=== PATIENT | male | born 1980 | race Caucasian/White ===

== ENCOUNTER 2016-09-19 17:17 | Emergency (ER) | payer MEDICARE, OTHER ==
--- NOTE | 2016-09-19 17:48 | ED ---
General Adult HPI - General Chief complaint: Extremity Injury, Upper Stated complaint: RT WRIST PAIN Time Seen by Provider: 09/19/16 17:37 Source: patient, RN notes reviewed Mode of arrival: ambulatory Limitations: no limitations - History of Present Illness Initial comments: This is a 36-year-old male presents with right wrist pain that started 3 days ago with no known injury. Patient states he noticed the pain when he went to crack his right wrist. Patient denies working with his hands or excessive typing. Patient states the only thing he lifts is his 1-year-old daughter. Patient states he gets a tingling to the medial aspect of the right wrist on the volar side that shoots up the third digit. Patient also complains of pain to the thenar region. Patient admits to marijuana use and tobacco use but denies any alcohol use. Patient denies any recent fever, chills, shortness breath, chest pain, abdominal pain, nausea/vomiting/diarrhea, back pain, hematuria, headache, or visual changes, or any other complaints. - Related Data Home Medications Medication Instructions Recorded Confirmed Loratadine [Claritin] 10 mg PO HS 02/18/14 07/08/16 Omeprazole [PriLOSEC] 20 mg PO DAILY 02/18/14 07/08/16 Topiramate [Topamax] 50 mg PO BID 02/18/14 07/08/16 Hydrocodone/Acetaminophen [[place] 1 tab PO Q4H PRN 07/03/14 07/08/16 10-325] Baclofen [Lioresal] 10 mg PO BID 05/16/16 07/08/16 Butalb/APAP/Caff 50-325-40Mg 1 tab PO DAILY PRN 05/16/16 07/08/16 [Fioricet 50-325-40] Fluticasone/Salmeterol [Advair 1 puff INHALATION RT-BID PRN 05/16/16 07/08/16 250-50 Diskus] Gabapentin 600 mg PO TID 05/16/16 07/08/16 PARoxetine HCL [Paxil] 40 mg PO HS 05/16/16 07/08/16 Previous Rx's Medication Instructions Recorded Ibuprofen [Motrin] 800 mg PO Q6HR PRN #20 tab 04/03/14 Hydrocortisone Cream 1 applic TOPICAL TID PRN #1 tube 12/07/15 [Hydrocortisone 2.5% Cream] Allergies Allergy/AdvReac Type Severity Reaction Status Date / Time No Known Allergies Allergy Verified 09/19/16 17:28 Review of Systems ROS Statement: Those systems with pertinent positive or pertinent negative responses have been documented in the HPI. ROS Other: All systems not noted in ROS Statement are negative. Past Medical History Past Medical History: GERD/Reflux, Musculoskeletal Disorder Additional Past Medical History / Comment(s): Migraine, stomach ulcer, hernia, back pain, depression History of Any Multi-Drug Resistant Organisms: MRSA Date of last positivie culture/infection: 1999/right forearm MDRO Source:: tatoo Past Surgical History: Hernia Repair, Orthopedic Surgery, Tonsillectomy Additional Past Surgical History / Comment(s): C2-C4 FRACTURE WITH REPLACEMENT AT C3 2012 Past Psychological History: Anxiety, Depression Smoking Status: Current every day smoker Past Alcohol Use History: Rare Past Drug Use History: Marijuana General Exam - General Exam Comments Initial Comments: General: The patient is awake and alert, in no distress, and does not appear acutely ill. Neck: The neck is supple, there is no tenderness or JVD. Cardiovascular: There is a regular rate and rhythm. No murmur, rub or gallop is appreciated. Respiratory: Lungs are clear to auscultation, respirations are non-labored, breath sounds are equal. No wheezes, stridor, rales, or rhonchi. Musculoskeletal: Patient has tenderness to the medial aspect of the right wrist on the volar side. There is no erythema, swelling or ecchymosis. No thenar hypertrophy. Some discomfort with tinnel's sign. There is some tenderness to palpation in the right thenar region. Patient has full range of motion, strength 5/5 and Sensation intact. Radial pulses 2+ bilaterally. Capillary refill is normal at less than 2 seconds. Neurological: A&O x 3. CN II-XII intact, There are no obvious motor or sensory deficits. Coordination appears grossly intact. Speech is normal. Skin: Skin is warm and dry and no rashes or lesions are noted. Psychiatric: Normal mood and affect. Limitations: no limitations Course Vital Signs 09/19/16 09/19/16 17:25 18:39 Temperature 98.7 F 97.9 F Pulse Rate 94 75 Respiratory 16 18 Rate Blood Pressure 133/73 100/61 O2 Sat by Pulse 100 99 Oximetry Medical Decision Making - Medical Decision Making This is a 36-year-old male with right wrist pain is no known injury. On physical exam patient has tenderness to the medial aspect of the right wrist on the volar side. There is no erythema, swelling or ecchymosis. No thenar hypertrophy. Some discomfort with tinnel's sign. There is some tenderness to palpation in the right thenar region. Patient has full range of motion, strength 5/5 and Sensation intact. Radial pulses 2+ bilaterally. Capillary refill is normal at less than 2 seconds. During exam patient complained of some shooting pain to the right third digit. An x-ray of the right wrist was done and reviewed showing: There is no acute fracture or dislocation in the right wrist. Unremarkable study. Report read by Dr. Hayse. I discussed carpal tunnel and tendinitis with the patient. I discussed that patient should purchase a wrist brace for immobilization at night and during the day while working around the house. I discussed range of motion to the patient's right wrist. I also discussed ice, elevation and an Joshua wrap. I discussed Tylenol and Motrin for pain and swelling. I discussed return parameters.Discussed that patient should follow up with PCP in one to 2 days or return to the [facility] for any worsening symptoms or any further concerns. Patient was receptive to this plan patient was discharged home. I discussed this case with attending physician Dr. Jeffrey who agrees with plan as stated above. Disposition Clinical Impression: Tendinitis, Carpal tunnel syndrome Disposition: HOME SELF-CARE Condition: Good Instructions: Tendinitis (ED) Additional Instructions: Please use a wrist brace for immobilization of the right wrist at night. Please use ice, elevation and an Joshua wrap to the right wrist as needed during the day. Please use Tylenol and Motrin for pain and swelling. Please follow- up through primary care physician in one to 2 days or return to the [facility] for any worsening symptoms or for any further concerns. Referrals: Anirudh Singletary MD [Primary Care Provider] - 1-2 days Time of Disposition: 18:33
--- NOTE | 2016-09-19 18:14 | XR ---
EXAMINATION TYPE: XR wrist complete RT DATE OF EXAM: 09/19/2016 6:07 PM CLINICAL HISTORY: Right wrist pain for 4 days. TECHNIQUE: Frontal, lateral, scaphoid, and oblique images of the right wrist are obtained. COMPARISON: None FINDINGS: There is no acute fracture/dislocation evident in the right wrist. The joint spaces in th e right wrist appear within normal limits. The overlying soft tissue appears unremarkable. IMPRESSION: There is no acute fracture or dislocation in the right wrist. Unremarkable study.
[2016-09-19 18:40] VITALS: BP 100/61; PULSE 75; RESP 18; TEMP 97.9
== END 2016-09-19 18:39 | disposition home or self-care (01) ==
LOC: EC 17:17
DX: G56.01 Carpal tunnel syndrome, right upper limb (principal); M77.9 Enthesopathy, unspecified; K21.9 Gastro-esophageal reflux disease without esophagitis; F41.9 Anxiety disorder, unspecified; F32.9 Major depressive disorder, single episode, unspecified; M79.9 Soft tissue disorder, unspecified; F17.200 Nicotine dependence, unspecified, uncomplicated; Z79.899 Other long term (current) drug therapy; Z87.19 Personal history of other diseases of the digestive system
CPT/HCPCS: 99283

== ENCOUNTER 2017-01-12 02:07 | Emergency (ER) | payer MEDICARE, OTHER ==
[2017-01-12 02:12] VITALS: RESP 18
[2017-01-12] MEDS ORDERED: SODIUM CHLORIDE 0.9% 1,000 ML IV ONE (02:30)
[2017-01-12] MEDS ORDERED: diphenhydrAMINE 50 MG/ML 1 ML VIAL IVP STA (02:30)
[2017-01-12] MEDS ORDERED: KETOROLAC 30 MG/ML 1 ML VIAL IVP STA (02:30)
[2017-01-12] MEDS ORDERED: METOCLOPRAMIDE 5 MG/ML 2 ML VIAL IVP STA (02:30)
--- NOTE | 2017-01-12 02:33 | ED ---
Headache HPI - General Chief Complaint: Headache Stated Complaint: Headache Time Seen by Provider: 01/12/17 02:26 Source: RN notes reviewed Mode of arrival: ambulatory Limitations: no limitations - History of Present Illness Initial Comments: Patient is a 36-year-old male presents to the emergency room for evaluation of migraine headache. Patient states he has a history of migraine headaches. Patient states he usually takes Topamax daily and Fioricet as needed for acute onset. Patient states his migraine began a day and a half ago. Patient states that the Fioricet is not helping him. Patient states he is having 8 out of 10 constant headache. Patient states this feels like his normal migraines. Patient states he is nauseous but denies vomiting. Patient denies neck pain, fevers or chills. Patient denies paresthesias. - Related Data Home Medications Medication Instructions Recorded Confirmed Loratadine [Claritin] 10 mg PO HS 02/18/14 01/12/17 Omeprazole [PriLOSEC] 20 mg PO DAILY 02/18/14 01/12/17 Topiramate [Topamax] 50 mg PO BID 02/18/14 01/12/17 Hydrocodone/Acetaminophen [[place] 1 tab PO Q4H PRN 07/03/14 01/12/17 10-325] Baclofen [Lioresal] 10 mg PO BID 05/16/16 01/12/17 Butalb/APAP/Caff 50-325-40Mg 1 tab PO DAILY PRN 05/16/16 01/12/17 [Fioricet 50-325-40] Fluticasone/Salmeterol [Advair 1 puff INHALATION RT-BID PRN 05/16/16 01/12/17 250-50 Diskus] Gabapentin 600 mg PO TID 05/16/16 01/12/17 PARoxetine HCL [Paxil] 40 mg PO HS 05/16/16 01/12/17 Previous Rx's Medication Instructions Recorded Ibuprofen [Motrin] 800 mg PO Q6HR PRN #20 tab 04/03/14 Hydrocortisone Cream 1 applic TOPICAL TID PRN #1 tube 12/07/15 [Hydrocortisone 2.5% Cream] Allergies Allergy/AdvReac Type Severity Reaction Status Date / Time No Known Allergies Allergy Verified 01/12/17 02:12 Review of Systems ROS Statement: Those systems with pertinent positive or pertinent negative responses have been documented in the HPI. ROS Other: All systems not noted in ROS Statement are negative. Past Medical History Past Medical History: GERD/Reflux, Musculoskeletal Disorder Additional Past Medical History / Comment(s): Migraine, stomach ulcer, hernia, back pain, depression History of Any Multi-Drug Resistant Organisms: MRSA Date of last positivie culture/infection: 1999/right forearm MDRO Source:: tatoo Past Surgical History: Hernia Repair, Orthopedic Surgery, Tonsillectomy Additional Past Surgical History / Comment(s): C2-C4 FRACTURE WITH REPLACEMENT AT C3 2012 Past Psychological History: Anxiety, Depression Smoking Status: Current every day smoker Past Alcohol Use History: Rare Past Drug Use History: Marijuana General Exam - General Exam Comments Initial Comments: pacing exam room, uncomfortable secondary to headache, no acute distress. Limitations: no limitations General appearance: alert, in no apparent distress Head exam: Present: atraumatic, normocephalic, normal inspection Eye exam: Present: normal appearance, PERRL, EOMI Pupils: Present: normal accommodation ENT exam: Present: normal exam, mucous membranes moist Neck exam: Present: normal inspection, full ROM. Absent: tenderness, lymphadenopathy Respiratory exam: Present: normal lung sounds bilaterally. Absent: respiratory distress Cardiovascular Exam: Present: regular rate, normal rhythm, normal heart sounds Extremities exam: Present: normal inspection Back exam: Present: normal inspection Neurological exam: Present: alert, oriented X3, CN II-XII intact, normal gait Expanded Patient oriented to: Present: person, place, time Speech: Present: fluid speech Sensory exam: Upper Extremity Light Touch: Normal, Lower Extremity Light Touch: Normal Psychiatric exam: Present: normal affect, normal mood Skin exam: Present: warm, dry, intact, normal color. Absent: rash Course Vital Signs 01/12/17 01/12/17 02:09 03:22 Temperature 97 F L 98.2 F Pulse Rate 58 L 78 Respiratory 18 18 Rate Blood Pressure 181/97 142/70 O2 Sat by Pulse 100 98 Oximetry Medical Decision Making - Medical Decision Making Patient is a 36-year-old male presents to the emergency room for evaluation of migraine headache. Patient has a history of migraine headaches. Patient was given medications and states he is feeling a lot better and would like to be discharged home. Return parameters discussed. Disposition Clinical Impression: Migraine Disposition: HOME SELF-CARE Condition: Good Instructions: Acute Headache (ED) Additional Instructions: Continue taking at home prescribed migraine medications as needed. Please follow up with primary care provider in 1-2 days. If any new symptom arises or symptoms worsen, return to ER as soon as possible. Referrals: Anirudh Singletary MD [Primary Care Provider] - 1-2 days Time of Disposition: 03:15
[2017-01-12 03:23] VITALS: BP 142/70; PULSE 78; TEMP 98.2
== END 2017-01-12 03:22 | disposition home or self-care (01) ==
LOC: EC 02:07
DX: G43.909 Migraine, unspecified, not intractable, without status migrainosus (principal); K21.9 Gastro-esophageal reflux disease without esophagitis; F32.9 Major depressive disorder, single episode, unspecified; F41.9 Anxiety disorder, unspecified; M62.9 Disorder of muscle, unspecified; F17.200 Nicotine dependence, unspecified, uncomplicated; Z79.899 Other long term (current) drug therapy
CPT/HCPCS: 99283; 96374; 96375 ×2; 96361; J1200; J2765; J1885

== ENCOUNTER 2017-01-16 19:46 | Emergency (ER) | payer MEDICARE, OTHER ==
[2017-01-16 19:54] VITALS: RESP 18
[2017-01-16] MEDS ORDERED: diphenhydrAMINE 50 MG/ML 1 ML VIAL IM STA (20:30)
[2017-01-16] MEDS ORDERED: KETOROLAC 60 MG/2 ML VIAL IM STA (20:30)
[2017-01-16] MEDS ORDERED: HYDROmorphone 1 MG/ML 1 ML SYRINGE IM STA (20:30)
--- NOTE | 2017-01-16 20:32 | ED ---
Back Pain HPI - General Chief Complaint: Back Pain/Injury Stated Complaint: Back Pain Time Seen by Provider: 01/16/17 20:17 Source: patient, RN notes reviewed Limitations: no limitations - History of Present Illness Initial Comments: 36-year-old male present emergency Department chief complaint of chronic back pain, migraine. Patient states he has recurrent migraines and does see a neurologist she's had injections. Patient was given chronic pain meds right his PCP Dr. Benedict. Patient denies any new injuries. He states that occasionally just has a flareup of the pain. Patient states that he has recurrent headaches states that he comes emergency department for medication. He was here recently and states he does feel better patient states that he has nausea no vomiting denies any blurred vision patient is a focal weakness. Patient states this feels like his normal migraine headache. Patient denies any other complaints at this time. Patient denies any bowel bladder incontinence. Patient states he does has low back pain no abdominal pain. - Related Data Home Medications Medication Instructions Recorded Confirmed Loratadine [Claritin] 10 mg PO HS 02/18/14 01/12/17 Omeprazole [PriLOSEC] 20 mg PO DAILY 02/18/14 01/12/17 Topiramate [Topamax] 50 mg PO BID 02/18/14 01/12/17 Hydrocodone/Acetaminophen [[place] 1 tab PO Q4H PRN 07/03/14 01/12/17 10-325] Baclofen [Lioresal] 10 mg PO BID 05/16/16 01/12/17 Butalb/APAP/Caff 50-325-40Mg 1 tab PO DAILY PRN 05/16/16 01/12/17 [Fioricet 50-325-40] Fluticasone/Salmeterol [Advair 1 puff INHALATION RT-BID PRN 05/16/16 01/12/17 250-50 Diskus] Gabapentin 600 mg PO TID 05/16/16 01/12/17 PARoxetine HCL [Paxil] 40 mg PO HS 05/16/16 01/12/17 Previous Rx's Medication Instructions Recorded Ibuprofen [Motrin] 800 mg PO Q6HR PRN #20 tab 04/03/14 Hydrocortisone Cream 1 applic TOPICAL TID PRN #1 tube 12/07/15 [Hydrocortisone 2.5% Cream] Allergies Allergy/AdvReac Type Severity Reaction Status Date / Time No Known Allergies Allergy Verified 01/16/17 19:54 Review of Systems ROS Statement: Those systems with pertinent positive or pertinent negative responses have been documented in the HPI. ROS Other: All systems not noted in ROS Statement are negative. Past Medical History Past Medical History: GERD/Reflux, Musculoskeletal Disorder Additional Past Medical History / Comment(s): Migraine, stomach ulcer, hernia, back pain, depression, chronic falls r/t pt "back giving out" History of Any Multi-Drug Resistant Organisms: MRSA Date of last positivie culture/infection: 1999/right forearm MDRO Source:: tatoo Past Surgical History: Hernia Repair, Orthopedic Surgery, Tonsillectomy Additional Past Surgical History / Comment(s): C2-C4 FRACTURE WITH REPLACEMENT AT C3 2012 Past Psychological History: Anxiety, Depression Smoking Status: Current every day smoker Past Alcohol Use History: Rare Past Drug Use History: Marijuana General Exam Limitations: no limitations General appearance: alert, in no apparent distress Head exam: Present: atraumatic, normocephalic, normal inspection Eye exam: Present: normal appearance, PERRL, EOMI. Absent: scleral icterus, conjunctival injection, periorbital swelling ENT exam: Present: mucous membranes moist. Absent: normal oropharynx ( Edentulous) Neck exam: Present: normal inspection, full ROM. Absent: tenderness, meningismus, lymphadenopathy Respiratory exam: Present: normal lung sounds bilaterally. Absent: respiratory distress, wheezes, rales, rhonchi, stridor Cardiovascular Exam: Present: regular rate, normal rhythm, normal heart sounds. Absent: systolic murmur, diastolic murmur, rubs, gallop, clicks GI/Abdominal exam: Present: soft, normal bowel sounds. Absent: distended, tenderness, guarding, rebound, rigid Back exam: Present: full ROM, tenderness (Mild diffuse lumbar tenderness), paraspinal tenderness. Absent: vertebral tenderness Neurological exam: Present: alert, oriented X3, CN II-XII intact, reflexes normal. Absent: motor sensory deficit Skin exam: Present: warm, dry, intact, normal color. Absent: rash Course Vital Signs 01/16/17 19:50 Temperature 97.0 F L Pulse Rate 81 Respiratory 18 Rate Blood Pressure 131/78 O2 Sat by Pulse 100 Oximetry Medical Decision Making - Medical Decision Making Patient has chronic back pain, chronic migraines. Patient given injection of pain medication here. Patient will be discharged. He has no neurological deficits. This is typical pain. Patient agrees to plan return parameters were discussed. Disposition Clinical Impression: Migraine, Chronic back pain Disposition: HOME SELF-CARE Condition: Stable Instructions: Migraine Headache (ED), Chronic Back Pain (ED) Additional Instructions: Please return to the Emergency Department if symptoms worsen or any other concerns. Referrals: Anirudh Singletary MD [Primary Care Provider] - 1-2 days Time of Disposition: 20:31
[2017-01-16 20:51] VITALS: BP 133/75; PULSE 90; TEMP 97.5
== END 2017-01-16 20:51 | disposition home or self-care (01) ==
LOC: EC 19:46
DX: G43.909 Migraine, unspecified, not intractable, without status migrainosus (principal); M54.9 Dorsalgia, unspecified; G89.29 Other chronic pain; K21.9 Gastro-esophageal reflux disease without esophagitis; F32.9 Major depressive disorder, single episode, unspecified; F17.200 Nicotine dependence, unspecified, uncomplicated; Z79.899 Other long term (current) drug therapy
CPT/HCPCS: 99283; 96372 ×3; J1200; J1885; J1170

== ENCOUNTER 2017-03-13 05:00 | Emergency (ER) | payer MEDICARE, OTHER ==
[2017-03-13] MEDS ORDERED: SODIUM CHLORIDE 0.9% 1,000 ML IV STA ×2 (05:30)
[2017-03-13] MEDS ORDERED: diphenhydrAMINE 50 MG/ML 1 ML VIAL IVP STA (05:30)
[2017-03-13] MEDS ORDERED: KETOROLAC 30 MG/ML 1 ML VIAL IVP STA (05:30)
[2017-03-13] MEDS ORDERED: METOCLOPRAMIDE 5 MG/ML 2 ML VIAL IVP STA (05:30)
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
[2017-03-13 06:41] VITALS: BP 110/59; PULSE 61; RESP 18; TEMP 97.5
== END 2017-03-13 06:40 | disposition home or self-care (01) ==
LOC: EC 05:00
DX: G43.909 Migraine, unspecified, not intractable, without status migrainosus (principal); K21.9 Gastro-esophageal reflux disease without esophagitis; F32.9 Major depressive disorder, single episode, unspecified; F41.9 Anxiety disorder, unspecified; F17.200 Nicotine dependence, unspecified, uncomplicated; Z79.899 Other long term (current) drug therapy
CPT/HCPCS: 99283; 96374; 96375 ×2; 96361; J1200; J2765; J1885

== ENCOUNTER → 2017-05-31 | Outpatient (CLI) | payer MEDICARE, OTHER ==
--- NOTE | 2017-05-31 11:31 | CT ---
EXAMINATION TYPE: CT cervical spine wo con DATE OF EXAM: 05/31/2017 COMPARISON: 02/18/2014. HISTORY: Cervical radicular pain CT DLP: 309.6 mGycm CONTRAST: None CT of the cervical spine is performed in the axial plane at 2 mm thick sections. Reconstructed image s in the coronal, and sagittal plane are reviewed on the computer. There is an anterior cervical fusion present C2-C4. Disc vertebral body spacer is present. No acute fractures are evident. Vertebral body alignment is normal. There is diffuse loss of disc height through the remaining disc levels, greater at C6-7. Vertebral body heights are preserved. No spinal canal stenosis is evident No neural foraminal stenosis is evident. Minimal endplate changes may be present C6-7 with anterior thecal sac contact. No spinal canal stenos is or neural foraminal stenosis present at this level. IMPRESSIONS: 1. Postsurgical changes, stable from 2013. 2. Degenerative disc changes C6-7. 3. No suspicious changes to account for right arm numbness.
== END | disposition home or self-care (01) ==
LOC: RADCTMAIN 07:22
PROVIDERS: ATTEND Neurological Surgery
DX: M50.123 Cervical disc disorder at C6-C7 level with radiculopathy (principal); Z98.1 Arthrodesis status
CPT/HCPCS: 72125

== ENCOUNTER 2017-07-18 03:31 | Emergency (ER) | payer MEDICARE, OTHER ==
[2017-07-18] MEDS ORDERED: KETOROLAC 30 MG/ML 1 ML VIAL IVP STA (03:47)
[2017-07-18] MEDS ORDERED: diphenhydrAMINE 50 MG/ML 1 ML VIAL IVP STA (03:47)
[2017-07-18] MEDS ORDERED: METOCLOPRAMIDE 5 MG/ML 2 ML VIAL IVP STA (03:47)
--- NOTE | 2017-07-18 04:44 | ED ---
Headache HPI - General Chief Complaint: Headache Stated Complaint: migraine Time Seen by Provider: 07/18/17 03:47 Mode of arrival: ambulatory Limitations: no limitations - History of Present Illness MD Complaint: "migraine" -: hour(s) Onset Description: gradual Location: occipital Severity: severe Quality: constant, similar to previous headaches Consistency: constant Improves With: nothing Worsens With: light Context: occurred at rest Associated Symptoms: nausea, vomiting Treatments Prior to Arrival: prescription analgesic - Related Data Home Medications Medication Instructions Recorded Confirmed Loratadine [Claritin] 10 mg PO HS 02/18/14 01/12/17 Omeprazole [PriLOSEC] 20 mg PO DAILY 02/18/14 01/12/17 Topiramate [Topamax] 50 mg PO BID 02/18/14 01/12/17 Hydrocodone/Acetaminophen [[place] 1 tab PO Q4H PRN 07/03/14 01/12/17 10-325] Baclofen [Lioresal] 10 mg PO BID 05/16/16 01/12/17 Butalb/APAP/Caff 50-325-40Mg 1 tab PO DAILY PRN 05/16/16 01/12/17 [Fioricet 50-325-40] Fluticasone/Salmeterol [Advair 1 puff INHALATION RT-BID PRN 05/16/16 01/12/17 250-50 Diskus] Gabapentin 600 mg PO TID 05/16/16 01/12/17 PARoxetine HCL [Paxil] 40 mg PO HS 05/16/16 01/12/17 Previous Rx's Medication Instructions Recorded Ibuprofen [Motrin] 800 mg PO Q6HR PRN #20 tab 04/03/14 Hydrocortisone Cream 1 applic TOPICAL TID PRN #1 tube 12/07/15 [Hydrocortisone 2.5% Cream] Allergies Allergy/AdvReac Type Severity Reaction Status Date / Time No Known Allergies Allergy Verified 07/18/17 03:38 Review of Systems ROS Statement: Those systems with pertinent positive or pertinent negative responses have been documented in the HPI. ROS Other: All systems not noted in ROS Statement are negative. Constitutional: Denies: fever, chills, weakness Eyes: Denies: eye pain, vision change Respiratory: Denies: cough, dyspnea Cardiovascular: Denies: chest pain, syncope Gastrointestinal: Reports: nausea, vomiting. Denies: abdominal pain Musculoskeletal: Denies: back pain Skin: Denies: rash Neurological: Reports: headache. Denies: weakness, numbness, paresthesias, confusion, abnormal gait, vertigo Past Medical History Past Medical History: GERD/Reflux, Musculoskeletal Disorder Additional Past Medical History / Comment(s): Migraine, stomach ulcer, hernia, back pain, depression, chronic falls r/t pt "back giving out" History of Any Multi-Drug Resistant Organisms: MRSA Date of last positivie culture/infection: 1999/right forearm MDRO Source:: tatoo Past Surgical History: Hernia Repair, Orthopedic Surgery, Tonsillectomy Additional Past Surgical History / Comment(s): C2-C4 FRACTURE WITH REPLACEMENT AT C3 2012 Past Psychological History: Anxiety, Depression Smoking Status: Current every day smoker Past Alcohol Use History: None Reported Past Drug Use History: Marijuana General Exam Limitations: no limitations General appearance: alert, in no apparent distress Head exam: Present: atraumatic, normocephalic Eye exam: Present: normal appearance. Absent: scleral icterus, conjunctival injection ENT exam: Present: normal oropharynx Neck exam: Present: normal inspection, full ROM. Absent: meningismus Neurological exam: Present: alert, oriented X3, CN II-XII intact, normal gait, reflexes normal. Absent: motor sensory deficit Skin exam: Present: warm, dry, intact, normal color. Absent: rash Course Vital Signs 07/18/17 03:33 Temperature 96.9 F L Pulse Rate 70 Respiratory 17 Rate Blood Pressure 118/71 Disposition Clinical Impression: Headache Disposition: HOME SELF-CARE Condition: Fair Instructions: Acute Headache (ED) Referrals: Anirudh Singletary MD [Primary Care Provider] - 1-2 days
[2017-07-18 05:01] VITALS: BP 106/55; PULSE 87; RESP 18; TEMP 97
== END 2017-07-18 05:01 | disposition home or self-care (01) ==
LOC: EC 03:31
DX: R51 Headache (principal); R11.2 Nausea with vomiting, unspecified; K21.9 Gastro-esophageal reflux disease without esophagitis; F32.9 Major depressive disorder, single episode, unspecified; F41.9 Anxiety disorder, unspecified; F17.200 Nicotine dependence, unspecified, uncomplicated; Z86.14 Personal history of Methicillin resistant Staphylococcus aureus infection; Z86.69 Personal history of other diseases of the nervous system and sense organs; Z79.899 Other long term (current) drug therapy
CPT/HCPCS: 99283; 96374; 96375 ×2; J1200; J2765; J1885

== ENCOUNTER 2017-10-09 04:41 | Emergency (ER) | payer MEDICARE, OTHER ==
[2017-10-09 04:47] VITALS: BP 137/89; PULSE 52; RESP 18; TEMP 97.8
[2017-10-09] MEDS ORDERED: METOCLOPRAMIDE 5 MG/ML 2 ML VIAL IVP STA (05:07)
[2017-10-09] MEDS ORDERED: diphenhydrAMINE 50 MG/ML 1 ML VIAL IVP STA (05:07)
[2017-10-09] MEDS ORDERED: KETOROLAC 30 MG/ML 1 ML VIAL IVP STA (05:07)
--- NOTE | 2017-10-09 05:14 | ED ---
Headache HPI - General Chief Complaint: Headache Stated Complaint: MIGRAINE Time Seen by Provider: 10/09/17 04:56 Mode of arrival: ambulatory Limitations: no limitations - History of Present Illness MD Complaint: "migraine" Onset/Timin -: days(s) Onset Description: gradual Location: right, left, temporal Severity: severe Quality: aching Consistency: constant Improves With: nothing Worsens With: light, noise Context: occurred at rest Associated Symptoms: photophobia, sensitivity to sound Treatments Prior to Arrival: migraine medication (Topamax and Fioricet) - Related Data Home Medications Medication Instructions Recorded Confirmed Loratadine [Claritin] 10 mg PO HS 02/18/14 01/12/17 Omeprazole [PriLOSEC] 20 mg PO DAILY 02/18/14 01/12/17 Topiramate [Topamax] 50 mg PO BID 02/18/14 01/12/17 Hydrocodone/Acetaminophen [[place] 1 tab PO Q4H PRN 07/03/14 01/12/17 10-325] Baclofen [Lioresal] 10 mg PO BID 05/16/16 01/12/17 Butalb/APAP/Caff 50-325-40Mg 1 tab PO DAILY PRN 05/16/16 01/12/17 [Fioricet 50-325-40] Fluticasone/Salmeterol [Advair 1 puff INHALATION RT-BID PRN 05/16/16 01/12/17 250-50 Diskus] Gabapentin 600 mg PO TID 05/16/16 01/12/17 PARoxetine HCL [Paxil] 40 mg PO HS 05/16/16 01/12/17 Previous Rx's Medication Instructions Recorded Ibuprofen [Motrin] 800 mg PO Q6HR PRN #20 tab 04/03/14 Hydrocortisone Cream 1 applic TOPICAL TID PRN #1 tube 12/07/15 [Hydrocortisone 2.5% Cream] Allergies Allergy/AdvReac Type Severity Reaction Status Date / Time No Known Allergies Allergy Verified 10/09/17 04:47 Review of Systems ROS Statement: Those systems with pertinent positive or pertinent negative responses have been documented in the HPI. ROS Other: All systems not noted in ROS Statement are negative. Constitutional: Denies: fever, chills, weakness Eyes: Denies: eye pain, vision change ENT: Denies: ear pain, hearing loss Respiratory: Denies: cough Cardiovascular: Denies: chest pain Gastrointestinal: Denies: abdominal pain, vomiting Neurological: Reports: headache. Denies: weakness, numbness, paresthesias, confusion Past Medical History Past Medical History: GERD/Reflux, Musculoskeletal Disorder Additional Past Medical History / Comment(s): Migraine, stomach ulcer, hernia, back pain, depression, chronic falls r/t pt "back giving out" History of Any Multi-Drug Resistant Organisms: MRSA Date of last positivie culture/infection: 1999/right forearm MDRO Source:: tatoo Past Surgical History: Hernia Repair, Orthopedic Surgery, Tonsillectomy Additional Past Surgical History / Comment(s): C2-C4 FRACTURE WITH REPLACEMENT AT C3 2012 Past Psychological History: Anxiety, Depression Smoking Status: Current every day smoker Past Alcohol Use History: None Reported Past Drug Use History: Marijuana General Exam Limitations: no limitations General appearance: alert, in no apparent distress Head exam: Present: atraumatic, normocephalic Eye exam: Present: normal appearance. Absent: scleral icterus, conjunctival injection ENT exam: Present: mucous membranes dry Neck exam: Present: normal inspection, full ROM. Absent: meningismus Neurological exam: Present: alert, oriented X3, CN II-XII intact, normal gait. Absent: motor sensory deficit Skin exam: Present: warm, dry, intact, normal color. Absent: rash Course Vital Signs 10/09/17 04:45 Temperature 97.8 F Pulse Rate 52 L Respiratory 18 Rate Blood Pressure 137/89 O2 Sat by Pulse 100 Oximetry Disposition Clinical Impression: Headache Disposition: HOME SELF-CARE Condition: Good Instructions: Acute Headache (ED) Referrals: Anirudh Singletary MD [Primary Care Provider] - 1-2 days
== END 2017-10-09 06:05 | disposition home or self-care (01) ==
LOC: EC 04:41
DX: R51 Headache (principal); K21.9 Gastro-esophageal reflux disease without esophagitis; F32.9 Major depressive disorder, single episode, unspecified; F41.9 Anxiety disorder, unspecified; F17.200 Nicotine dependence, unspecified, uncomplicated; Z86.14 Personal history of Methicillin resistant Staphylococcus aureus infection; Z86.69 Personal history of other diseases of the nervous system and sense organs; Z79.899 Other long term (current) drug therapy
CPT/HCPCS: 99283; 96374; 96375 ×2; J1200; J2765; J1885

== ENCOUNTER 2017-12-08 23:36 | Emergency (ER) | payer MEDICARE, OTHER ==
[2017-12-08 23:50] VITALS: RESP 18
[2017-12-09] MEDS ORDERED: METOCLOPRAMIDE 5 MG/ML 2 ML VIAL IVP STA (00:08)
[2017-12-09] MEDS ORDERED: KETOROLAC 30 MG/ML 1 ML VIAL IVP STA (00:08)
[2017-12-09] MEDS ORDERED: diphenhydrAMINE 50 MG/ML 1 ML VIAL IVP STA (00:08)
--- NOTE | 2017-12-09 01:16 | ED ---
Headache HPI - General Chief Complaint: Headache Stated Complaint: Migraine Time Seen by Provider: 12/08/17 23:58 Mode of arrival: ambulatory Limitations: no limitations - History of Present Illness Initial Comments: 37-year-old male patient presents to the emergency department today for evaluation of migraine headache. Patient states that he has a history of migraines does take Topamax and Fioricet for this. Patient states that this particular headache started approximately 3 days ago. States that his medications have not been working for him. States that he does have some sensitivity to light and sound. States that the pain is located all over his head however is worse at the base of the skull. He denies any blurred or double vision. Denies any dizziness or weakness. Denies any numbness or tingling. He has had nausea but no vomiting. States that his symptoms are consistent with his usual migraine pattern. Patient denies any recent rash, fever, chills, shortness breath, chest pain, abdominal pain, nausea, vomiting, diarrhea, constipation, back pain, hematuria, dysuria, urinary urgency, urinary frequency, or any other complaints. - Related Data Home Medications Medication Instructions Recorded Confirmed Loratadine [Claritin] 10 mg PO HS 02/18/14 01/12/17 Omeprazole [PriLOSEC] 20 mg PO DAILY 02/18/14 01/12/17 Topiramate [Topamax] 50 mg PO BID 02/18/14 01/12/17 Hydrocodone/Acetaminophen [[place] 1 tab PO Q4H PRN 07/03/14 01/12/17 10-325] Baclofen [Lioresal] 10 mg PO BID 05/16/16 01/12/17 Butalb/APAP/Caff 50-325-40Mg 1 tab PO DAILY PRN 05/16/16 01/12/17 [Fioricet 50-325-40] Fluticasone/Salmeterol [Advair 1 puff INHALATION RT-BID PRN 05/16/16 01/12/17 250-50 Diskus] Gabapentin 600 mg PO TID 05/16/16 01/12/17 PARoxetine HCL [Paxil] 40 mg PO HS 05/16/16 01/12/17 Previous Rx's Medication Instructions Recorded Ibuprofen [Motrin] 800 mg PO Q6HR PRN #20 tab 09/25/14 Hydrocortisone Cream 1 applic TOPICAL TID PRN #1 tube 12/07/15 [Hydrocortisone 2.5% Cream] Allergies Allergy/AdvReac Type Severity Reaction Status Date / Time No Known Allergies Allergy Verified 12/08/17 23:50 Review of Systems ROS Statement: Those systems with pertinent positive or pertinent negative responses have been documented in the HPI. ROS Other: All systems not noted in ROS Statement are negative. Past Medical History Past Medical History: GERD/Reflux, Musculoskeletal Disorder Additional Past Medical History / Comment(s): Migraine, stomach ulcer, hernia, back pain, depression, chronic falls r/t pt "back giving out", History of Any Multi-Drug Resistant Organisms: MRSA Date of last positivie culture/infection: 1999/right forearm MDRO Source:: tatoo Past Surgical History: Hernia Repair, Orthopedic Surgery, Tonsillectomy Additional Past Surgical History / Comment(s): C2-C4 FRACTURE WITH REPLACEMENT AT C3 2012, Past Psychological History: Anxiety, Depression Smoking Status: Current every day smoker Past Alcohol Use History: None Reported Past Drug Use History: Marijuana General Exam Limitations: no limitations General appearance: alert, in no apparent distress, other (This is a well- developed, well-nourished adult male patient in no acute distress. Vital signs upon presentation are temperature 98.2F, pulse 60, respirations 18, blood pressure 101/70, pulse ox 100% on room air.) Head exam: Present: atraumatic, normocephalic, normal inspection Eye exam: Present: normal appearance, PERRL, EOMI. Absent: scleral icterus, conjunctival injection, nystagmus, periorbital swelling ENT exam: Present: normal exam, normal oropharynx, mucous membranes moist Neck exam: Present: normal inspection, full ROM. Absent: tenderness, meningismus, lymphadenopathy Respiratory exam: Present: normal lung sounds bilaterally. Absent: respiratory distress, wheezes, rales, rhonchi, stridor Cardiovascular Exam: Present: regular rate, normal rhythm, normal heart sounds. Absent: systolic murmur, diastolic murmur, rubs, gallop, clicks Neurological exam: Present: alert, oriented X3, CN II-XII intact, other ( Strength in all 4 extremities is 5/5.) Psychiatric exam: Present: normal affect, normal mood Skin exam: Present: warm, dry, intact, normal color. Absent: rash Course Vital Signs 12/08/17 12/09/17 23:47 01:22 Temperature 98.2 F 97.6 F Pulse Rate 60 89 Respiratory 18 18 Rate Blood Pressure 101/70 104/68 O2 Sat by Pulse 100 99 Oximetry Medical Decision Making - Medical Decision Making 37-year-old male patient presents to the emergency department today for complaints of migraine headache. Physical examination is unremarkable. Patient is neurologically intact. Patient states the symptoms are consistent with his usual migraine pattern however his medications are not working. Patient was given IV Reglan, Benadryl, and Toradol. He is given IV fluids. Upon reevaluation patient states his pain is much improved. He is currently rating it a 4 out of 10 on the pain scale. Patient states he does feel comfortable being discharged home to follow-up. He is instructed to follow up with his PCP in 1-2 days. Return parameters were discussed in detail. He verbalizes understanding and agrees with this plan. Disposition Clinical Impression: Migraine Disposition: HOME SELF-CARE Condition: Good Instructions: Migraine Headache (ED) Additional Instructions: Continue home medications. Follow-up with your primary care physician for recheck in 1-2 days. Return here immediately for any new, worsening, or concerning symptoms. Is patient prescribed a controlled substance at d/c from ED?: No Referrals: Anirudh Singletary MD [Primary Care Provider] - 1-2 days Time of Disposition: 01:15
[2017-12-09 01:23] VITALS: BP 104/68; PULSE 89; TEMP 97.6
== END 2017-12-09 01:22 | disposition home or self-care (01) ==
LOC: EC 23:36
DX: G43.909 Migraine, unspecified, not intractable, without status migrainosus (principal); K21.9 Gastro-esophageal reflux disease without esophagitis; F32.9 Major depressive disorder, single episode, unspecified; F41.9 Anxiety disorder, unspecified; F17.200 Nicotine dependence, unspecified, uncomplicated; Z79.899 Other long term (current) drug therapy; Z86.14 Personal history of Methicillin resistant Staphylococcus aureus infection; Z87.39 Personal history of other diseases of the musculoskeletal system and connective tissue
CPT/HCPCS: 99283; 96374; 96375 ×2; J1200; J2765; J1885

== ENCOUNTER 2018-01-04 14:59 | Emergency (ER) | payer MEDICARE, OTHER ==
[2018-01-04 15:06] VITALS: BP 114/73; PULSE 89; RESP 18; TEMP 97.9
--- NOTE | 2018-01-04 15:22 | ED ---
General Adult HPI - General Chief complaint: Skin/Abscess/Foreign Body Stated complaint: skin problems Time Seen by Provider: 01/04/18 15:08 Source: patient, RN notes reviewed Mode of arrival: ambulatory Limitations: no limitations - History of Present Illness Initial comments: Patient 37-year-old male presented to the emergency room today with a chief complaint of rash and itching to the volar aspect of his forearms bilaterally. States only thing that he can think of is that it started after he had a haircut the other day and he fell asleep before he showered. Patient denies any other new contacts soap detergents. Patient dismissed very itchy she's been trying not to itch serious. States no one else at home has similar rash. He denies any other complaints or symptoms. Patient denies any recent fever, chills, shortness of breath, chest pain, back pain, abdominal pain, nausea or vomiting, numbness or tingling, headaches or visual changes, or any other complaints. - Related Data Home Medications Medication Instructions Recorded Confirmed Loratadine [Claritin] 10 mg PO HS 02/18/14 01/12/17 Omeprazole [PriLOSEC] 20 mg PO DAILY 02/18/14 01/12/17 Topiramate [Topamax] 50 mg PO BID 02/18/14 01/12/17 Hydrocodone/Acetaminophen [[place] 1 tab PO Q4H PRN 07/03/14 01/12/17 10-325] Butalb/APAP/Caff 50-325-40Mg 1 tab PO DAILY PRN 05/16/16 01/12/17 [Fioricet 50-325-40] Gabapentin 600 mg PO TID 05/16/16 01/12/17 PARoxetine HCL [Paxil] 40 mg PO HS 05/16/16 01/12/17 Previous Rx's Medication Instructions Recorded Ibuprofen [Motrin] 800 mg PO Q6HR PRN #20 tab 04/03/14 Famotidine [Pepcid] 20 mg PO BID #20 tablet 01/04/18 Hydrocortisone Cream 1 applic TOPICAL TID #1 cream..g. 01/04/18 [Hydrocortisone 1% Cream] diphenhydrAMINE [Benadryl] 1 - 2 tab PO Q6HR PRN #30 capsule 01/04/18 predniSONE 20 mg PO BID 5 Days tab 01/04/18 Allergies Allergy/AdvReac Type Severity Reaction Status Date / Time No Known Allergies Allergy Verified 01/04/18 15:06 Review of Systems ROS Statement: Those systems with pertinent positive or pertinent negative responses have been documented in the HPI. ROS Other: All systems not noted in ROS Statement are negative. Past Medical History Past Medical History: GERD/Reflux, Musculoskeletal Disorder Additional Past Medical History / Comment(s): Migraine, stomach ulcer, hernia, back pain, depression, chronic falls r/t pt "back giving out", History of Any Multi-Drug Resistant Organisms: MRSA Date of last positivie culture/infection: 1999/right forearm MDRO Source:: tatoo Past Surgical History: Hernia Repair, Orthopedic Surgery, Tonsillectomy Additional Past Surgical History / Comment(s): C2-C4 FRACTURE WITH REPLACEMENT AT C3 2012, Past Psychological History: Anxiety, Depression Smoking Status: Current every day smoker Past Alcohol Use History: None Reported Past Drug Use History: Marijuana General Exam - General Exam Comments Initial Comments: General: The patient is awake and alert, in no distress, and does not appear acutely ill. Eye: Pupils are equal, round and reactive to light, extra-ocular movements are intact. No nystagmus. There is normal conjunctiva bilaterally. No signs of icterus. Ears, nose, mouth and throat: There are moist mucous membranes and no oral lesions. Neck: The neck is supple, there is no tenderness or JVD. Musculoskeletal: Normal ROM, no tenderness. Strength 5/5. Sensation intact. Neurological: A&O x 3. CN II-XII intact, There are no obvious motor or sensory deficits. Coordination appears grossly intact. Speech is normal. Skin: Papular type rash to the volar aspect of the forearms bilaterally. Psychiatric: Cooperative, appropriate mood & affect, normal judgment. Limitations: no limitations Course Vital Signs 01/04/18 15:05 Temperature 97.9 F Pulse Rate 89 Respiratory 18 Rate Blood Pressure 114/73 O2 Sat by Pulse 99 Oximetry Medical Decision Making - Medical Decision Making Rash is localized to the forearm area. Normal smile also similar findings. Patient's use Benadryl little relief. Advised continue Benadryl at this time will also be given prescription for topical and oral steroids for a few days to see if it improves her symptoms. Advised follow-up return if symptoms increase or worsen or for transfer Disposition Clinical Impression: Contact dermatitis Disposition: HOME SELF-CARE Condition: Good Instructions: Dermatitis (ED) Additional Instructions: Please use medication as discussed. Please follow-up with family doctor in the next 2 days of symptoms have not improved. Please return to emergency room if the symptoms increase or worsen or for any other concerns. Prescriptions: diphenhydrAMINE [Benadryl] 1 - 2 tab PO Q6HR PRN #30 capsule PRN Reason: Allergic Reaction Famotidine [Pepcid] 20 mg PO BID #20 tablet Hydrocortisone Cream [Hydrocortisone 1% Cream] 1 applic TOPICAL TID #1 cream..g. predniSONE 20 mg PO BID 5 Days tab Is patient prescribed a controlled substance at d/c from ED?: No Referrals: Anirudh Singletary MD [Primary Care Provider] - 1-2 days Time of Disposition: 15:20
== END 2018-01-04 15:25 | disposition home or self-care (01) ==
LOC: EC 14:59
DX: L25.9 Unspecified contact dermatitis, unspecified cause (principal); K21.9 Gastro-esophageal reflux disease without esophagitis; F32.9 Major depressive disorder, single episode, unspecified; F41.9 Anxiety disorder, unspecified; F17.200 Nicotine dependence, unspecified, uncomplicated; Z86.14 Personal history of Methicillin resistant Staphylococcus aureus infection; Z79.899 Other long term (current) drug therapy
CPT/HCPCS: 99282

== ENCOUNTER 2018-01-15 00:47 | Emergency (ER) | payer MEDICARE, OTHER ==
[2018-01-15] MEDS ORDERED: diphenhydrAMINE 50 MG/ML 1 ML VIAL IVP STA (01:33)
[2018-01-15] MEDS ORDERED: METOCLOPRAMIDE 5 MG/ML 2 ML VIAL IVP STA (01:33)
[2018-01-15] MEDS ORDERED: SODIUM CHLORIDE 0.9% 1,000 ML IV STA (01:33)
[2018-01-15] MEDS ORDERED: KETOROLAC 30 MG/ML 1 ML VIAL IVP STA (01:33)
--- NOTE | 2018-01-15 02:07 | ED ---
Headache HPI - General Chief Complaint: Headache Stated Complaint: Migraine Time Seen by Provider: 01/15/18 01:27 Source: patient, RN notes reviewed Mode of arrival: ambulatory Limitations: no limitations - History of Present Illness Initial Comments: This is a 37-year-old male with history of migraine headaches who presents to the emergency department with chief complaint of migraine. Patient states that he developed a migraine yesterday. He states that he didn't have it under control for a couple of hours but then it returned. He states he takes Topamax daily. He states that he takes Fioricet when he has migraines. Patient is describes the migraine as throbbing. He states that it starts at the base of his head and wraps around to the temples. Patient states that this is similar to his previous episodes of migraine. He states that he is sensitive to light and sound. Patient denies any recent illnesses or infections. Denies fevers or chills, chest or shortness of breath, abdominal pain, vomiting. He does admit to associated nausea. Denies dizziness or vision changes. - Related Data Home Medications Medication Instructions Recorded Confirmed Loratadine [Claritin] 10 mg PO HS 02/18/14 01/04/18 Omeprazole [PriLOSEC] 20 mg PO DAILY 02/18/14 01/04/18 Topiramate [Topamax] 50 mg PO BID 02/18/14 01/04/18 Hydrocodone/Acetaminophen [[place] 1 tab PO Q4H PRN 07/03/14 01/04/18 10-325] Butalb/APAP/Caff 50-325-40Mg 1 tab PO DAILY PRN 05/16/16 01/04/18 [Fioricet 50-325-40] Gabapentin 600 mg PO TID 05/16/16 01/04/18 PARoxetine HCL [Paxil] 40 mg PO HS 05/16/16 01/04/18 Previous Rx's Medication Instructions Recorded Ibuprofen [Motrin] 800 mg PO Q6HR PRN #20 tab 04/03/14 Famotidine [Pepcid] 20 mg PO BID #20 tablet 01/04/18 Hydrocortisone Cream 1 applic TOPICAL TID #1 cream..g. 01/04/18 [Hydrocortisone 1% Cream] diphenhydrAMINE [Benadryl] 1 - 2 tab PO Q6HR PRN #30 capsule 01/04/18 predniSONE 20 mg PO BID 5 Days tab 01/04/18 Allergies Allergy/AdvReac Type Severity Reaction Status Date / Time No Known Allergies Allergy Verified 01/15/18 01:03 Review of Systems ROS Statement: Those systems with pertinent positive or pertinent negative responses have been documented in the HPI. ROS Other: All systems not noted in ROS Statement are negative. Past Medical History Past Medical History: GERD/Reflux, Musculoskeletal Disorder Additional Past Medical History / Comment(s): Migraine, stomach ulcer, hernia, back pain, depression, chronic falls r/t pt "back giving out", History of Any Multi-Drug Resistant Organisms: MRSA Date of last positivie culture/infection: 1999/right forearm MDRO Source:: tatoo Past Surgical History: Hernia Repair, Orthopedic Surgery, Tonsillectomy Additional Past Surgical History / Comment(s): C2-C4 FRACTURE WITH REPLACEMENT AT C3 2012, Past Psychological History: Anxiety, Depression Smoking Status: Current every day smoker Past Alcohol Use History: None Reported Past Drug Use History: Marijuana General Exam - General Exam Comments Initial Comments: General: Awake and alert, well-developed; in no apparent distress. Patient is hunched over covering his eyes. HEENT: Head atraumatic, normocephalic. Pupils are equal, round and reactive to light. Extraocular movements intact. Oropharynx moist without erythema or exudate. Neck: Supple. Normal ROM. Cardiovascular: Regular rate and rhythm. No murmurs, rubs or gallops. Chest symmetrical. Respiratory: Lungs clear to auscultation bilaterally. No wheezes, rales or rhonchi. Normal respiratory effort with no use of accessory muscles. Musculoskeletal: Normal ROM, no tenderness bilateral upper and lower extremities. Ambulating normally. Skin: [place], warm and dry without rashes or lesions. Neurological: Alert and oriented x3. CN II-XII grossly intact. Speech is fluent and answers are appropriate. No focal neuro deficits. Psychiatric: Normal mood and affect. No overt signs of depression or anxiety noted. Limitations: no limitations Course Vital Signs 01/15/18 01:00 Temperature 97.9 F Pulse Rate 59 L Respiratory 18 Rate Blood Pressure 132/86 O2 Sat by Pulse 100 Oximetry Medical Decision Making - Medical Decision Making This is a 37-year-old male with history of migraines who presents to the emergency department with chief complaint of acute migraine. Patient states that his current migraine feels like previous episodes. He states that he does take Topamax daily for preventative measure. He states that he has been unable to get this migraine under control since yesterday. Patient given headache cocktail and fluids while in the emergency department. Patient states that his migraine has improved and is ready to be discharged home. Vital signs are stable and he is in no acute distress. He will be discharged home at this time. Patient is in agreement and voices understanding. All questions answered. Disposition Clinical Impression: Migraine Disposition: HOME SELF-CARE Condition: Good Instructions: Acute Headache (ED), Migraine Headache (ED) Additional Instructions: Please follow up with primary care provider within 1-2 days. Return to emergency department if symptoms should worsen or any concerns arise. Is patient prescribed a controlled substance at d/c from ED?: No Referrals: Anirudh Singletary MD [Primary Care Provider] - 1-2 days Time of Disposition: 02:43
[2018-01-15 02:54] VITALS: BP 106/66; PULSE 57; RESP 16; TEMP 98.4
== END 2018-01-15 02:54 | disposition home or self-care (01) ==
LOC: EC 00:47
DX: G43.909 Migraine, unspecified, not intractable, without status migrainosus (principal); K21.9 Gastro-esophageal reflux disease without esophagitis; F32.9 Major depressive disorder, single episode, unspecified; F41.9 Anxiety disorder, unspecified; F17.200 Nicotine dependence, unspecified, uncomplicated; Z86.14 Personal history of Methicillin resistant Staphylococcus aureus infection; Z79.899 Other long term (current) drug therapy
CPT/HCPCS: 99283; 96374; 96375 ×2; 96361; J1200; J2765; J1885

== ENCOUNTER 2018-05-29 02:06 | Emergency (ER) | payer MEDICARE, OTHER ==
[2018-05-29 02:16] VITALS: TEMP 97.6
[2018-05-29] MEDS ORDERED: diphenhydrAMINE 50 MG CAP PO STA (02:32)
[2018-05-29] MEDS ORDERED: KETOROLAC 30 MG/ML 1 ML VIAL IVP STA (02:32)
[2018-05-29] MEDS ORDERED: METOCLOPRAMIDE 5 MG/ML 2 ML VIAL IVP STA (02:32)
[2018-05-29] MEDS ORDERED: SODIUM CHLORIDE 0.9% 1,000 ML IV ONE (02:32)
--- NOTE | 2018-05-29 02:48 | ED ---
Headache HPI - General Chief Complaint: Headache Stated Complaint: Headache Time Seen by Provider: 05/29/18 02:32 Mode of arrival: ambulatory - History of Present Illness Initial Comments: Lavon is a 38-year-old male with a history of migraines who presents the ED today for reevaluation of headache. Patient reports headache began yesterday. As pressure-like in nature associated with photophobia and phonophobia. Headache is identical to previous migraines. Patient took his home medications yesterday and had some improvement in the headache and was able to sleep for a period of time however the headache persists today so he came to the ER for evaluation. This is not the worse headache of his life, it was not sudden in onset, it is not associated with nausea, vomiting or any associated neurologic deficits. This is a typical migraine headache for this patient. - Related Data Home Medications Medication Instructions Recorded Confirmed Loratadine [Claritin] 10 mg PO HS 02/18/14 05/29/18 Omeprazole [PriLOSEC] 20 mg PO DAILY 02/18/14 05/29/18 Topiramate [Topamax] 50 mg PO BID 02/18/14 05/29/18 Hydrocodone/Acetaminophen [[place] 1 tab PO Q4H PRN 07/03/14 05/29/18 10-325] Butalb/APAP/Caff 50-325-40Mg 1 tab PO DAILY PRN 05/16/16 05/29/18 [Fioricet 50-325-40] PARoxetine HCL [Paxil] 40 mg PO HS 05/16/16 05/29/18 Hydrocortisone Cream 1 applic TOPICAL DAILY PRN 05/29/18 05/29/18 [Hydrocortisone 1% Cream] Previous Rx's Medication Instructions Recorded Ibuprofen [Motrin] 800 mg PO Q6HR PRN #20 tab 04/03/14 diphenhydrAMINE [Benadryl] 1 - 2 tab PO Q6HR PRN #30 capsule 01/04/18 predniSONE 20 mg PO BID 5 Days tab 01/04/18 Allergies Allergy/AdvReac Type Severity Reaction Status Date / Time No Known Allergies Allergy Verified 05/29/18 02:16 Review of Systems ROS Statement: Those systems with pertinent positive or pertinent negative responses have been documented in the HPI. ROS Other: All systems not noted in ROS Statement are negative. Past Medical History Past Medical History: GERD/Reflux, Musculoskeletal Disorder Additional Past Medical History / Comment(s): Migraine, stomach ulcer, hernia, back pain, depression, chronic falls r/t pt "back giving out", History of Any Multi-Drug Resistant Organisms: MRSA Date of last positivie culture/infection: 1999/right forearm MDRO Source:: tatoo Past Surgical History: Hernia Repair, Orthopedic Surgery, Tonsillectomy Additional Past Surgical History / Comment(s): C2-C4 FRACTURE WITH REPLACEMENT AT C3 2012, Past Psychological History: Anxiety, Depression Smoking Status: Current every day smoker Past Alcohol Use History: None Reported Past Drug Use History: Marijuana General Exam - General Exam Comments Initial Comments: Physical Exam GENERAL: Patient is well-developed and well-nourished. Patient is nontoxic and well- hydrated Shunt appears uncomfortable is pacing around a dark room holding his head HENT: Normocephalic, Atraumatic. EYES: PERRL, EOMI PULMONARY: Unlabored respirations. No audible rales rhonchi or wheezing was noted. CARDIOVASCULAR: There is a regular rate and rhythm without any murmurs gallops or rubs. ABDOMEN: Nondistended SKIN: Skin is clear with no lesions or rashes and otherwise unremarkable. : Deferred NEUROLOGIC: Patient is alert and oriented x3. Moving all extremities spontaneously MUSCULOSKELETAL: Normal extremities with adequate strength and full range of motion. No lower extremity swelling or edema. No calf tenderness. PSYCHIATRIC: Normal psychiatric evaluation. Limitations: no limitations Course Vital Signs 05/29/18 05/29/18 02:14 03:56 Temperature 97.6 F Pulse Rate 62 61 Respiratory 20 16 Rate Blood Pressure 143/84 109/84 O2 Sat by Pulse 100 98 Oximetry Medical Decision Making - Medical Decision Making Patient was seen and evaluated history is obtained from the patient patient with recurrent migraines, experiencing a migraine which responded transiently to home medications. I will treat with IV fluids Toradol Reglan and by mouth Benadryl. Patient's agreeable with this plan. Patient received medications and was reevaluated and reports his pain to 110 he would like to be discharged home. Patient walked to the emergency department feels comfortable walking home despite having taken 50 mg Benadryl. At this time the patient is standing in the room awake talking I feel he is safe for discharge home. Return parameters were discussed all questions pertaining to care were answered patient was discharged home in stable condition Disposition Clinical Impression: Headache Disposition: HOME SELF-CARE Condition: Stable Instructions: Acute Headache (ED) Is patient prescribed a controlled substance at d/c from ED?: No Referrals: Anirudh Singletary MD [Primary Care Provider] - 1-2 days
[2018-05-29 04:12] VITALS: BP 109/84; PULSE 61; RESP 16
== END 2018-05-29 03:56 | disposition home or self-care (01) ==
LOC: EC 02:06
DX: G43.909 Migraine, unspecified, not intractable, without status migrainosus (principal); K21.9 Gastro-esophageal reflux disease without esophagitis; F32.9 Major depressive disorder, single episode, unspecified; F41.9 Anxiety disorder, unspecified; F17.200 Nicotine dependence, unspecified, uncomplicated; Z79.899 Other long term (current) drug therapy; Z86.14 Personal history of Methicillin resistant Staphylococcus aureus infection
CPT/HCPCS: 99283; 96374; 96375; 96361; J2765; J1885

== ENCOUNTER 2018-11-16 03:16 | Emergency (ER) | payer MEDICARE, OTHER ==
[2018-11-16 03:25] VITALS: TEMP 97.5
[2018-11-16] MEDS ORDERED: KETOROLAC 30 MG/ML 1 ML VIAL IM STA (03:31)
[2018-11-16] MEDS ORDERED: KETOROLAC 30 MG/ML 1 ML VIAL IVP STA (03:32)
[2018-11-16] MEDS ORDERED: METOCLOPRAMIDE 5 MG/ML 2 ML VIAL IVP STA (03:35)
[2018-11-16] MEDS ORDERED: diphenhydrAMINE 50 MG/ML 1 ML VIAL IVP STA (03:35)
--- NOTE | 2018-11-16 03:35 | ED ---
General Adult HPI - General Chief complaint: Headache Stated complaint: Headache Time Seen by Provider: 11/16/18 03:30 Source: patient, RN notes reviewed Mode of arrival: ambulatory Limitations: no limitations - History of Present Illness Initial comments: 38-year-old male with a past medical history of migraines presents to the emergency department for a chief complaint of migraine headache. Patient states this headache is been ongoing for about 2 days. Patient does admit to light sensitivity and sensitivity to sound with this. Patient states headache is exactly consistent with previous migraines. Denies any differences. States this headache came on slowly over the past few days.Patient has no other complaints at this time including shortness of breath, chest pain, abdominal pain, nausea or vomiting, or visual changes. - Related Data Home Medications Medication Instructions Recorded Confirmed Loratadine [Claritin] 10 mg PO HS 02/18/14 05/29/18 Omeprazole [PriLOSEC] 20 mg PO DAILY 02/18/14 05/29/18 Topiramate [Topamax] 50 mg PO BID 02/18/14 05/29/18 Hydrocodone/Acetaminophen [[place] 1 tab PO Q4H PRN 07/03/14 05/29/18 10-325] Butalb/APAP/Caff 50-325-40Mg 1 tab PO DAILY PRN 05/16/16 05/29/18 [Fioricet 50-325-40] PARoxetine HCL [Paxil] 40 mg PO HS 05/16/16 05/29/18 Hydrocortisone Cream 1 applic TOPICAL DAILY PRN 05/29/18 05/29/18 [Hydrocortisone 1% Cream] Previous Rx's Medication Instructions Recorded Ibuprofen [Motrin] 800 mg PO Q6HR PRN #20 tab 04/03/14 diphenhydrAMINE [Benadryl] 1 - 2 tab PO Q6HR PRN #30 capsule 01/04/18 predniSONE 20 mg PO BID 5 Days tab 01/04/18 Allergies Allergy/AdvReac Type Severity Reaction Status Date / Time No Known Allergies Allergy Verified 11/16/18 03:25 Review of Systems ROS Statement: Those systems with pertinent positive or pertinent negative responses have been documented in the HPI. ROS Other: All systems not noted in ROS Statement are negative. Past Medical History Past Medical History: GERD/Reflux, Musculoskeletal Disorder Additional Past Medical History / Comment(s): Migraine, stomach ulcer, hernia, back pain, depression, chronic falls r/t pt "back giving out", History of Any Multi-Drug Resistant Organisms: MRSA Date of last positivie culture/infection: 1999/right forearm MDRO Source:: tatoo Past Surgical History: Hernia Repair, Orthopedic Surgery, Tonsillectomy Additional Past Surgical History / Comment(s): C2-C4 FRACTURE WITH REPLACEMENT AT C3 2012, Past Psychological History: Anxiety, Depression Smoking Status: Current every day smoker Past Alcohol Use History: None Reported Past Drug Use History: Marijuana General Exam Limitations: no limitations General appearance: alert, in no apparent distress Head exam: Present: atraumatic, normocephalic, normal inspection Eye exam: Present: normal appearance, PERRL, EOMI. Absent: scleral icterus, conjunctival injection, periorbital swelling ENT exam: Present: normal exam, normal oropharynx, mucous membranes moist, normal external ear exam Neck exam: Present: normal inspection, full ROM. Absent: tenderness, meningismus, lymphadenopathy Respiratory exam: Present: normal lung sounds bilaterally. Absent: respiratory distress, wheezes, rales, rhonchi, stridor Cardiovascular Exam: Present: regular rate, normal rhythm, normal heart sounds. Absent: systolic murmur, diastolic murmur, rubs, gallop, clicks GI/Abdominal exam: Present: soft, normal bowel sounds. Absent: distended, tenderness, guarding, rebound, rigid Neurological exam: Present: alert, oriented X3, CN II-XII intact, normal gait, other (GCS 15) Psychiatric exam: Present: normal affect, normal mood Course Vital Signs 11/16/18 03:23 Temperature 97.5 F L Pulse Rate 67 Respiratory 22 Rate Blood Pressure 145/92 O2 Sat by Pulse 98 Oximetry Medical Decision Making - Medical Decision Making 38 her old male presents to the emergency determine for chief lien of migraine headache 2 days. States this is exactly consistent with previous migraines. No focal neuro deficits on exam. Patient given Toradol IV as this was already established. Patient had complete resolution of symptoms, feeling much better at this time. Requesting discharge home. Patient will follow up with primary care in 1-2 days or return if he has any worsening symptoms. Disposition Clinical Impression: Migraine Disposition: HOME SELF-CARE Instructions (If sedation given, give patient instructions): Acute Headache (ED) Additional Instructions: Please follow up with primary care in 1-2 days. Return here if you have any worsening symptoms. Is patient prescribed a controlled substance at d/c from ED?: No Referrals: Anirudh Singletary MD [Primary Care Provider] - 1-2 days Time of Disposition: 04:15
[2018-11-16 04:29] VITALS: BP 113/71; PULSE 70; RESP 16
== END 2018-11-16 04:29 | disposition home or self-care (01) ==
LOC: EC 03:16
DX: G43.909 Migraine, unspecified, not intractable, without status migrainosus (principal); K21.9 Gastro-esophageal reflux disease without esophagitis; F32.9 Major depressive disorder, single episode, unspecified; F41.9 Anxiety disorder, unspecified; F17.200 Nicotine dependence, unspecified, uncomplicated; Z86.14 Personal history of Methicillin resistant Staphylococcus aureus infection; Z79.899 Other long term (current) drug therapy
CPT/HCPCS: 99283; 96374; 96375 ×2; J1200; J2765; J1885

== ENCOUNTER 2018-11-22 15:04 | Emergency (ER) | payer MEDICARE, OTHER ==
[2018-11-22 15:27] VITALS: TEMP 98
[2018-11-22] MEDS ORDERED: KETOROLAC 30 MG/ML 1 ML VIAL IVP STA (16:03)
[2018-11-22] MEDS ORDERED: cefTRIAXone IN SWFI 1,000 MG/10 ML SYRINGE IVP STA (16:04)
[2018-11-22 16:30] LABS: Basophils % (A) 0 %; Eosinophils # (A) 0.2 k/uL (0-0.7); Eosinophils % (A) 2 %; HCT 39.9 % (39.0-53.0); HGB 13.5 gm/dL (13.0-17.5); Lymphocytes # (A) 1.9 k/uL (1.0-4.8); Lymphocytes % (A) 25 %; MCH 32.7 pg (25.0-35.0); MCHC 33.7 g/dL (31.0-37.0); Mean Platelet Volume 7.3; Monocytes # (A) 0.5 k/uL (0-1.0); Monocytes % (A) 6 %; Neutrophils % (A) 65 %; Platelet Count 195 k/uL (150-450); RBC 4.12 m/uL (4.30-5.90); RDW 12.3 % (11.5-15.5); WBC 7.7 k/uL (3.8-10.6)
[2018-11-22 16:33] LABS: Appearance,Urine Clear (Clear); Bilirubin,Urine Negative (Negative); Blood,Urine Negative (Negative); Color,Urine Yellow; Glucose,Urine (UA) Negative (Negative); Ketones,Urine Negative (Negative); Leukocyte Esterase,Urine Small (Negative); Mucus,Urine Many /hpf; Nitrite,Urine Negative (Negative); Protein,Urine 1+ (Negative); RBC,Urine 4 /hpf (0-5); Specific Gravity,Urine 1.034 (1.001-1.035); WBC,Urine 15 /hpf (0-5)
[2018-11-22 16:39] LABS: ALT 17 U/L (21-72); AST 24 U/L (17-59); Albumin 4.3 g/dL (3.5-5.0); Alkaline Phosphatase 48 U/L (38-126); Anion Gap 9 mmol/L; Blood Urea Nitrogen 15 mg/dL (9-20); Calcium 9.4 mg/dL (8.4-10.2); Carbon Dioxide 20 mmol/L (22-30); Chloride 112 mmol/L (98-107); Glucose 87 mg/dL (74-99); Potassium 3.7 mmol/L (3.5-5.1); Sodium 141 mmol/L (137-145); Total Bilirubin 0.3 mg/dL (0.2-1.3); Total Protein 6.5 g/dL (6.3-8.2)
--- NOTE | 2018-11-22 17:02 | ED ---
Abdominal Pain HPI - General Chief Complaint: Abdominal Pain Stated Complaint: poss kidney stones Time Seen by Provider: 11/22/18 15:28 Source: patient Mode of arrival: ambulatory Limitations: no limitations - History of Present Illness Initial Comments: 38-year-old male presented for chief complaint of dysuria urgency frequency x 4 days. Pt states he had performed at [facility] past 3 days prior which revealed a urinary tract infection after complaining of dysuria, frequency, urgency. He was prescribed antibiotics, ciprofloxaxin as well as Flomax. Patient states he continues to have symptoms, including pain of the the flanks b/l. Pt fever or chills night sweats diarrhea vomiting abdominal pain headache or any other positive review of system. Upon arrival patient appears normal signs of toxicity. Afebrile. HR WNL. - Related Data Home Medications Medication Instructions Recorded Confirmed Loratadine [Claritin] 10 mg PO HS 02/18/14 11/22/18 Omeprazole [PriLOSEC] 20 mg PO DAILY 02/18/14 11/22/18 Topiramate [Topamax] 50 mg PO BID 02/18/14 11/22/18 Hydrocodone/Acetaminophen [[place] 1 tab PO Q4H PRN 07/03/14 11/22/18 10-325] Butalb/APAP/Caff 50-325-40Mg 1 tab PO DAILY PRN 05/16/16 11/22/18 [Fioricet 50-325-40] PARoxetine HCL [Paxil] 40 mg PO HS 05/16/16 11/22/18 ARIPiprazole [Abilify] 5 mg PO DAILY 11/22/18 11/22/18 Ciprofloxacin HCl [Cipro] 500 mg PO DAILY 11/22/18 11/22/18 Gabapentin 800 mg PO TID 11/22/18 11/22/18 Tamsulosin [Flomax] 0.4 mg PO DAILY 11/22/18 11/22/18 Previous Rx's Medication Instructions Recorded Ibuprofen [Motrin] 800 mg PO Q6HR PRN #20 tab 04/03/14 Sulfamethox-Tmp 800-160Mg [Bactrim 1 tab PO Q12HR 7 Days #14 tab 11/22/18 DS 800-160 mg] Allergies Allergy/AdvReac Type Severity Reaction Status Date / Time No Known Allergies Allergy Verified 11/22/18 15:54 Review of Systems ROS Statement: Those systems with pertinent positive or pertinent negative responses have been documented in the HPI. ROS Other: All systems not noted in ROS Statement are negative. Past Medical History Past Medical History: GERD/Reflux, Musculoskeletal Disorder Additional Past Medical History / Comment(s): Migraine, stomach ulcer, hernia, back pain, depression, chronic falls r/t pt "back giving out", History of Any Multi-Drug Resistant Organisms: MRSA Date of last positivie culture/infection: 1999/right forearm MDRO Source:: tatoo Past Surgical History: Hernia Repair, Orthopedic Surgery, Tonsillectomy Additional Past Surgical History / Comment(s): C2-C4 FRACTURE WITH REPLACEMENT AT C3 2012, Past Psychological History: Anxiety, Depression Smoking Status: Current every day smoker Past Alcohol Use History: None Reported Past Drug Use History: Marijuana General Exam - General Exam Comments Initial Comments: General: The patient is awake and alert, in no distress, and does not appear acutely ill. Eye: Pupils are equal, round and reactive to light, extra-ocular movements are intact. No nystagmus. There is normal conjunctiva bilaterally. No signs of icterus. Ears, nose, mouth and throat: There are moist mucous membranes and no oral lesions. Neck: The neck is supple, there is no tenderness or JVD. Cardiovascular: There is a regular rate and rhythm. No murmur, rub or gallop is appreciated. Respiratory: Lungs are clear to auscultation, respirations are non-labored, breath sounds are equal. No wheezes, stridor, rales, or rhonchi. Gastrointestinal: Soft, non-distended, non-tender abdomen without masses or organomegaly noted. There is no rebound or guarding present. No CVA tenderness. Bowel sounds are unremarkable. Musculoskeletal: Normal ROM, no tenderness. Strength 5/5. Sensation intact. Pulses equal bilaterally 2+. Neurological: A&O x 3. CN II-XII intact, There are no obvious motor or sensory deficits. Coordination appears grossly intact. Speech is normal. Skin: Skin is warm and dry and no rashes or lesions are noted. Psychiatric: Cooperative, appropriate mood & affect, normal judgment. Limitations: no limitations Course Vital Signs 11/22/18 15:25 Temperature 98.0 F Pulse Rate 88 Respiratory 18 Rate Blood Pressure 109/71 O2 Sat by Pulse 99 Oximetry Medical Decision Making - Medical Decision Making 38 yo male presented for dysuria urgency frequency. Patient states she's had some flank pain. Patient treated for urinary tract infection 3 days prior. Has a appointment with urology tomorrow. Patient confided in me that he is concerned for STI. Patient urinalysis testing pending. Patient be treated with ceftriaxone and azithromycin. As well as change of antibiotics to Bactrim. Patient is to keep scheduled appointment with urology and follow-up with primary care provider in 2 days. Patient is agreeable care plan as well as discharge. Patient does not appear toxic there is no leukocytosis or other findings concerning for systemic spread of infection. Patient discharged after discussing return parameters. I discussed the case with attending provider Dr. Mann prior to patient's discharge. - Lab Data Result diagrams: 11/22/18 16:00 11/22/18 16:00 Lab Results 11/22/18 11/22/18 11/22/18 Range/Units 16:00 16:00 16:00 WBC 7.7 (3.8-10.6) k/uL RBC 4.12 L (4.30-5.90) m/uL Hgb 13.5 (13.0-17.5) gm/dL Hct 39.9 (39.0-53.0) % MCV 97.0 (80.0-100.0) fL MCH 32.7 (25.0-35.0) pg MCHC 33.7 (31.0-37.0) g/dL RDW 12.3 (11.5-15.5) % Plt Count 195 (150-450) k/uL Neutrophils % 65 % Lymphocytes % 25 % Monocytes % 6 % Eosinophils % 2 % Basophils % 0 % Neutrophils # 5.0 (1.3-7.7) k/uL Lymphocytes # 1.9 (1.0-4.8) k/uL Monocytes # 0.5 (0-1.0) k/uL Eosinophils # 0.2 (0-0.7) k/uL Basophils # 0.0 (0-0.2) k/uL Sodium 141 (137-145) mmol/L Potassium 3.7 (3.5-5.1) mmol/L Chloride 112 H (98-107) mmol/L Carbon Dioxide 20 L (22-30) mmol/L Anion Gap 9 mmol/L BUN 15 (9-20) mg/dL Creatinine 1.03 (0.66-1.25) mg/dL Est GFR (CKD-EPI)AfAm >90 (>60 ml/min/1.73 sqM) Est GFR (CKD-EPI)NonAf >90 (>60 ml/min/1.73 sqM) Glucose 87 (74-99) mg/dL Calcium 9.4 (8.4-10.2) mg/dL Total Bilirubin 0.3 (0.2-1.3) mg/dL AST 24 (17-59) U/L ALT 17 L (21-72) U/L Alkaline Phosphatase 48 (38-126) U/L Total Protein 6.5 (6.3-8.2) g/dL Albumin 4.3 (3.5-5.0) g/dL Urine Color Yellow Urine Appearance Clear (Clear) Urine pH 6.0 (5.0-8.0) Ur Specific [place] 1.034 (1.001-1.035) Urine Protein 1+ H (Negative) Urine Glucose (UA) Negative (Negative) Urine Ketones Negative (Negative) Urine Blood Negative (Negative) Urine Nitrite Negative (Negative) Urine Bilirubin Negative (Negative) Urine Urobilinogen 3.0 (<2.0) mg/dL Ur Leukocyte Esterase Small H (Negative) Urine RBC 4 (0-5) /hpf Urine WBC 15 H (0-5) /hpf Urine Mucus Many H (None) /hpf Disposition Clinical Impression: UTI (urinary tract infection) Disposition: HOME SELF-CARE Condition: Good Instructions (If sedation given, give patient instructions): Urinary Tract Infection in Women (ED) Additional Instructions: Please use medication as discussed. Please follow-up with family doctor in the next 2 days, and urology in 2-3 days urology. Please return to emergency room if the symptoms increase or worsen or for any other concerns, including worsening symptoms or development of fever. Prescriptions: Sulfamethox-Tmp 800-160Mg [Bactrim DS 800-160 mg] 1 tab PO Q12HR 7 Days #14 tab Is patient prescribed a controlled substance at d/c from ED?: No Referrals: Anirudh Singletary MD [Primary Care Provider] - 1-2 days Jef Mckeon MD [STAFF PHYSICIAN] - 1-2 days Time of Disposition: 18:00
--- NOTE | 2018-11-22 17:45 | CT ---
EXAMINATION TYPE: CT abdomen pelvis w con DATE OF EXAM: 11/22/2018 COMPARISON: 01/26/2015 HISTORY: Left flank pain. CT DLP: 585.8 mGycm Automated exposure control for dose reduction was used. TECHNIQUE: Helical acquisition of images was performed from the lung bases through the pelvis. CONTRAST: Performed without Oral Contrast and with IV Contrast, patient injected with 100 mL of Isovue 300. FINDINGS: There is some linear density at the left lung base related to atelectasis. There is no pleural effusi on. Heart size is normal. There is no pericardial effusion. Stomach appears normal. Liver spleen pancreas gallbladder appear normal. Bile ducts are not dilated. There is no adrenal mass. Kidneys show satisfactory contrast opacification. There is no hydronephrosi s. There is no retroperitoneal adenopathy. Bladder distends smoothly. There is no inguinal hernia. Th ere is no free fluid in the pelvis. There is no evidence of a pelvic mass. There is no mesenteric prema ma. Appendix appears normal. There is no sign of a bowel obstruction. There is proximal jejunum that shows some wall thickening. Lumbar spine is intact. Bony pelvis is intact. I see no bony destructive process. IMPRESSION: There are some loops of jejunum with relative wall thickening. This is nonspecific. This could relate to gastroenteritis. Normal appendix. Otherwise negative exam. This appears to be a change compared to old exam.
[2018-11-22] MEDS ORDERED: AZITHROMYCIN 500 MG TAB PO STA (17:57)
[2018-11-22] MEDS ORDERED: SULFAMETH-TMP DS STARTER PACK 2 TAB BTL PO STA (17:57)
[2018-11-22] MEDS ORDERED: cefTRIAXone 250 MG VIAL IM STA (17:57)
[2018-11-22 18:55] VITALS: BP 119/78; PULSE 79; RESP 16
[2018-11-23 14:36] LABS: C. trachomatis,PCR Negative (Neg,Equiv); Chlamydia trachomatis Source Urine; N. gonorrhoeae,PCR Positive (Neg,Equiv); Neisseria Source Urine
== END 2018-11-22 18:55 | disposition home or self-care (01) ==
LOC: EC 15:04
DX: N39.0 Urinary tract infection, site not specified (principal); K21.9 Gastro-esophageal reflux disease without esophagitis; G43.909 Migraine, unspecified, not intractable, without status migrainosus; F41.9 Anxiety disorder, unspecified; F32.9 Major depressive disorder, single episode, unspecified; F17.200 Nicotine dependence, unspecified, uncomplicated; Z86.14 Personal history of Methicillin resistant Staphylococcus aureus infection; Z79.899 Other long term (current) drug therapy
CPT/HCPCS: 36415; 80053; 85025; 81001; 87491; 87591; 87086; 74177; 99284; 96374; 96375; 96372; J0696 ×2; J1885; Q9967

== ENCOUNTER 2019-07-28 14:56 | Emergency (ER) | payer MEDICARE, OTHER ==
[2019-07-28 14:59] VITALS: BP 123/81; PULSE 83; RESP 18; TEMP 98.1
[2019-07-28] MEDS ORDERED: IBUPROFEN 600 MG TAB PO STA ×2 (15:02→15:05)
--- NOTE | 2019-07-28 15:14 | ED ---
Upper Extremity HPI - General Source: patient Mode of arrival: ambulatory Limitations: no limitations <Luis Milan - Last Filed: 07/28/19 22:49> <Nakia Kinsey - Last Filed: 07/31/19 21:55> - General Chief Complaint: Extremity Injury, Upper Stated Complaint: Hand Injury Time Seen by Provider: 07/28/19 14:59 - History of Present Illness Initial Comments: Patient is a 39-year-old male presenting to emergency Department with a chief complaint of right hand injury. Patient reports he slammed his hand on his car door. Patient reports incident occurred about one hour prior to give out. Patient does report pain along the second through fifth MCP joints. Patient does report limited range of motion due to pain. He also reports some ecchymosis and mild swelling in the region. Denies any lacerations or abrasions. Denies any numbness or tingling. Denies taking any medication to alleviate the symptoms. (Luis Milan) - Related Data Home Medications Medication Instructions Recorded Confirmed Loratadine [Claritin] 10 mg PO HS 02/18/14 11/22/18 Omeprazole [PriLOSEC] 20 mg PO DAILY 02/18/14 11/22/18 Topiramate [Topamax] 50 mg PO BID 02/18/14 11/22/18 Hydrocodone/Acetaminophen [[place] 1 tab PO Q4H PRN 07/03/14 11/22/18 10-325] Butalb/APAP/Caff 50-325-40Mg 1 tab PO DAILY PRN 05/16/16 11/22/18 [Fioricet 50-325-40] PARoxetine HCL [Paxil] 40 mg PO HS 05/16/16 11/22/18 ARIPiprazole [Abilify] 5 mg PO DAILY 11/22/18 11/22/18 Ciprofloxacin HCl [Cipro] 500 mg PO DAILY 11/22/18 11/22/18 Gabapentin 800 mg PO TID 11/22/18 11/22/18 Tamsulosin [Flomax] 0.4 mg PO DAILY 11/22/18 11/22/18 Previous Rx's Medication Instructions Recorded Ibuprofen [Motrin] 800 mg PO Q6HR PRN #20 tab 04/03/14 Sulfamethox-Tmp 800-160Mg [Bactrim 1 tab PO Q12HR 7 Days #14 tab 11/22/18 DS 800-160 mg] Allergies Allergy/AdvReac Type Severity Reaction Status Date / Time No Known Allergies Allergy Verified 07/28/19 14:58 Review of Systems ROS Other: All systems not noted in ROS Statement are negative. <Luis Milan - Last Filed: 07/28/19 22:49> ROS Other: All systems not noted in ROS Statement are negative. <Nakia Kinsey - Last Filed: 07/31/19 21:55> ROS Statement: Those systems with pertinent positive or pertinent negative responses have been documented in the HPI. Past Medical History Past Medical History: GERD/Reflux, Musculoskeletal Disorder Additional Past Medical History / Comment(s): Migraine, stomach ulcer, hernia, back pain, depression, chronic falls r/t pt "back giving out", History of Any Multi-Drug Resistant Organisms: MRSA Date of last positivie culture/infection: 1999/right forearm MDRO Source:: tatoo Past Surgical History: Hernia Repair, Orthopedic Surgery, Tonsillectomy Additional Past Surgical History / Comment(s): C2-C4 FRACTURE WITH REPLACEMENT AT C3 2012, Past Psychological History: Anxiety, Depression Smoking Status: Current every day smoker Past Alcohol Use History: None Reported Past Drug Use History: Marijuana <KayliLuis - Last Filed: 07/28/19 22:49> General Exam Limitations: no limitations General appearance: alert, in no apparent distress Head exam: Present: atraumatic, normocephalic, normal inspection Eye exam: Present: normal appearance, PERRL, EOMI Pupils: Present: normal accommodation ENT exam: Present: normal exam Neck exam: Present: normal inspection, full ROM Respiratory exam: Present: normal lung sounds bilaterally Cardiovascular Exam: Present: regular rate, normal rhythm, normal heart sounds Extremities exam: Present: full ROM (Limited range of motion in the second through fifth digits due to pain.), tenderness (No anatomical snuffbox tenderness.), normal capillary refill (snuffbox), other (+2 ulnar and radial pulses bilaterally.). Absent: normal inspection (Mild swelling along the second and third MCP joints. No abrasions or lacerations.) Back exam: Present: normal inspection, full ROM Neurological exam: Present: alert, oriented X3 Psychiatric exam: Present: normal affect, normal mood Skin exam: Present: warm, dry, intact, normal color <Luis Milan - Last Filed: 07/28/19 22:49> Course Vital Signs 07/28/19 14:57 Temperature 98.1 F Pulse Rate 83 Respiratory 18 Rate Blood Pressure 123/81 O2 Sat by Pulse 99 Oximetry Medical Decision Making <Luis Milan - Last Filed: 07/28/19 22:49> <Nakia Kinsey - Last Filed: 07/31/19 21:55> - Medical Decision Making Patient 39-year-old male presenting to emergency Department with chief complaint of a right hand injury. Patient does have limited range of motion in his right hand due to pain. He does have mild swelling in the MCP joints. No anatomical snuffbox tenderness. No numbness or tingling. Patient is neurovascularly intact. X-rays unremarkable. Patient advised to alternate between Tylenol and Motrin for pain control. He was advised to apply ice compress to minimize symptoms. He was also advised to follow-up with civil engineering specialist if the symptoms persist. Strict return parameters were thoroughly discussed with patient was understanding and agreeable. Case discussed with physician. (Luis Milan) I was available for consultation in the emergency department. The history and physical exam were done by the midlevel provider. I was consulted for this patients care. I reviewed the case with the midlevel provider and based on their presentation of the patient, I agree with the assessment, medical decision making and plan of care as documented. Chart was dictated using [employer] dictation software. Attempts were made to correct any dictation errors however some typographical errors may persist. (Nakia Kinsey) Disposition Is patient prescribed a controlled substance at d/c from ED?: No Time of Disposition: 16:01 <Luis Milan - Last Filed: 07/28/19 22:49> <Nakia Kinsey - Last Filed: 07/31/19 21:55> Clinical Impression: Hand trauma, Contusion, hand Disposition: HOME SELF-CARE Condition: Stable Instructions (If sedation given, give patient instructions): Hand Sprain (ED) Additional Instructions: Please follow up with primary care. Alternate between Tylenol and Motrin for pain control. Please return to emergency department if symptoms worsen. Apply ice compress to minimize symptoms Referrals: Anirudh Singletary MD [Primary Care Provider] - 1-2 days
--- NOTE | 2019-07-28 15:35 | XR ---
EXAMINATION TYPE: XR hand complete RT DATE OF EXAM: 07/28/2019 CLINICAL HISTORY: pain TECHNIQUE: Frontal, lateral and oblique images of the right hand are obtained. COMPARISON: None. FINDINGS: There is no acute fracture/dislocation evident. Healed remote injury at the base of the fi fth metacarpal is suggested. The joint spaces appear within normal limits. The overlying soft tissue appears unremarkable. IMPRESSION: There is no acute fracture or dislocation ICD 10 NO FRACTURE, INITIAL EVALUATION
== END 2019-07-28 16:02 | disposition home or self-care (01) ==
LOC: EC 14:56
DX: S60.221A Contusion of right hand, initial encounter (principal); K21.9 Gastro-esophageal reflux disease without esophagitis; G43.909 Migraine, unspecified, not intractable, without status migrainosus; F41.9 Anxiety disorder, unspecified; F32.9 Major depressive disorder, single episode, unspecified; F17.200 Nicotine dependence, unspecified, uncomplicated; Z86.14 Personal history of Methicillin resistant Staphylococcus aureus infection; Z79.899 Other long term (current) drug therapy; W23.0XXA Caught, crushed, jammed, or pinched between moving objects, initial encounter; Y92.89 Other specified places as the place of occurrence of the external cause
CPT/HCPCS: 99283